=== PATIENT | female | born 1985 | race Caucasian/White ===

== ENCOUNTER 2024-06-26 11:47 | Outpatient (OUT) | payer BC, SELFPAY ==
--- NOTE | 2024-06-26 | PCN_ITS ---
Requesting Physician: Procedure Date: 06/26/2024 [facility] EKG STRESS TEST INDICATION FOR THE TEST: Chest pain and palpitations. The test was discussed with the patient in details including risks and benefits and she is agreeable to proceed. Resting 12 lead EKG showed normal sinus rhythm, heart rate 92 beats per minute, right axis deviation, no significant T or ST changes. Resting blood pressure 132/72 mm/Hg.. The patient was exercised according to standard [facility] protocol, and she was able to finish 9 minutes and 47 seconds of exercise, achieving 12.5 METS and max heart rate of 164 beats per minute, which represents 91% of age predicted maximum heart rate and maximum blood pressure of 142/86 mm/Hg. Exercise was terminated secondary to achievement of target heart rate and the patient had some shortness of breath at peak exercise, but the patient did not experience any chest, neck, jaw or arm discomfort throughout the test. The patient was monitored for 10 minutes into recovery with heart rate down to 101 beats per minute and blood pressure to 146/78 mm/Hg. EKG during exercise, at peak exercise, and during recovery phase did not show significant T or ST changes or significant arrhythmias. CONCLUSION: 1. Maximal stress test achieving 91% of age predicted maximum heart rate. 2. Good exercise tolerance. 3. Appropriate heart rate and blood pressure response to exercise. 4. This stress test is negative for exercise induced ischemic symptoms, EKG changes or arrhythmias. 5. Montes score 10 consistent with low risk for significant coronary artery disease and cardiac events. MTDD
== END 2024-06-26 11:48 | disposition home or self-care (01) ==
LOC: CARD 11:47
PROVIDERS: PCP Family Medicine; Visit Provider Family Medicine
DX: R07.2 Precordial pain (principal); R00.2 Palpitations; E66.01 Morbid (severe) obesity due to excess calories
CPT/HCPCS: 93017